=== PATIENT | male | born 1965 | race Two or more races ===

== ENCOUNTER 2018-11-11 19:24 | Emergency (ER) | payer MEDICAID ==
[~2018-11-11] VITALS: Ht 167.6 cm; Wt 72.6 kg
[2018-11-11] MEDS ORDERED: BENZTROPINE MESYLATE (1 MG) 1 MG TABLET PO ONE (20:00)
[2018-11-11] MEDS ORDERED: BENZTROPINE MESYLATE (1 MG) 1 MG TABLET ONE (20:02)
--- NOTE | 2018-11-11 20:18 | NUR ---
SPOKE WITH TIRSO SYLVESTER FROM [facility] AND INFORMED PT WILL RETURN TO FACILITY. PER TIRSO, THEY REQUIRE URINE DRUG SCREEN AND ETOH LEVEL PRIOR TO RETURE. ER AWARE
--- NOTE | 2018-11-11 20:51 | NUR ---
CALLED [facility] FOR TRANSPORTATION. ETA 90MIN. TRIP #[id number]
[2018-11-11 22:30] VITALS: BP 139/80
--- NOTE | 2018-11-11 22:37 | NUR ---
INFORMED TIRSO SYLVESTER FROM [facility] OF URINE DRUG SCREEN AND ETOH, PT WILL RETURN TO FACILITY
--- NOTE | 2018-11-11 23:03 | NUR ---
GAVE REPORT TO [facility] FOR TRANSPORTATION [facility]
== END 2018-11-11 23:03 ==
LOC: ER 19:28
DX: M62.838 Other muscle spasm (principal); I10 Essential (primary) hypertension; E11.9 Type 2 diabetes mellitus without complications; F17.200 Nicotine dependence, unspecified, uncomplicated
CPT/HCPCS: 36415; 80305; G0480

== ENCOUNTER 2018-12-26 20:28 | Emergency (ER) | payer MEDICAID ==
[~2018-12-26] VITALS: Ht 167.6 cm; Wt 72.6 kg
--- NOTE | 2018-12-26 20:45 | NUR ---
PT BIBSELF C/O SI WITH PLAN TO RUN INTO TRAFFIC. DENIES HI OR HALLUCINATIONS. PT AAOX4. CALM AND COOPERATIVE. RESPIRATIONS EVEN AND UNLABORED. SKIN INTACT. ABLE TO AMBULATE WITH STEADY GAIT. SUICIDIAL PRECAUTIONS INITIATED, PT PLACED IN GOWN AND BELONGING COLLECTED. SITTER AT BEDSIDE. WILL CONTINUE TO MONITOR.
--- NOTE | 2018-12-26 20:55 | NUR ---
URINE COLLECTED AND SENT TO LAB
--- NOTE | 2018-12-26 21:09 | NUR ---
CORE PLACER AT BEDSIDE FOR BLOOD DRAW
[2018-12-26 21:15] LABS: BASOPHILS # (AUTO) 0.1 /CMM (0.0-0.2); BASOPHILS % (AUTO) 1.1 % (0.0-2.0); HEMATOCRIT 40 % (39-51); HEMOGLOBIN 13.6 g/dL (13.5-17.5); LYMPHOCYTES # (AUTO) 2.5 /CMM (0.8-4.8); LYMPHOCYTES % (AUTO) 43.2 % (20.0-44.0); MEAN CORPUSCULAR HGB CONC 34 g/dl (31.0-36.0); MEAN CORPUSCULAR VOLUME 90 fL (80-96); MONOCYTES # (AUTO) 0.4 /CMM (0.1-1.30); MONOCYTES % (AUTO) 7.2 % (2.0-12.0); NEUTROPHILS # (AUTO) 2.1 /CMM (1.8-8.9); NEUTROPHILS % (AUTO) 37.5 % (43.0-81.0); PLATELET COUNT (AUTO) 229 /CMM (150-450); RED BLOOD CELL COUNT(AUTO) 4.45 MIL/uL (4.5-6.0); WHITE BLOOD COUNT (AUTO) 5.7 K/uL (4.3-11.0)
[2018-12-26 21:21] LABS: APPEARANCE,URINE Clear (CLEAR); BILIRUBIN,URINE Negative (NEGATIVE); BLOOD, URINE Negative Ery/uL (NEGATIVE); COLOR,URINE Yellow (YELLOW); KETONES,URINE Negative (NEGATIVE); LEUKOCYTE ESTERASE ,URINE Trace (NEGATIVE); NITRITE, URINE Negative (NEGATIVE); PH,URINE 6.5 (5.0-8.0); PROTEIN,URINE Negative (NEGATIVE); UGLUCOSE 500 MG/DL mg/dL (NEGATIVE); UROBILINOGEN,URINE 0.2 EU/dL (0.2)
[2018-12-26 21:25] LABS: CALCIUM, SERUM 9.4 mg/dL (8.5-10.1); CARBON DIOXIDE 32 mmol/L (21-32); CHLORIDE 101 mmol/L (98-107); GLUCOSE 255 mg/dL (74-106); POTASSIUM 4.5 mmol/L (3.5-5.1); SODIUM SERUM 139 mmol/L (136-145); UREA NITROGEN, BLOOD 21 mg/dL (7-18)
[2018-12-26 21:28] LABS: BACTERIA,URINE 2+ /HPF (None Seen); RBC,URINE 0-2 /HPF (0-2); SQUAMOUS EPITHELIAL CELL,UR Few /HPF (None Seen); YEAST,URINE Moderate /HPF (None Seen)
[2018-12-26] MEDS ORDERED: IV NS 0.9% 1,000 ML BAG IV ONE (21:30)
[2018-12-26 21:31] LABS: ALANINE AMINOTRANSFERASE 19 U/L (12-78); ALCOHOL, BLOOD < 3 mg/dL (0-0); ALKALINE PHOSPHATASE 93 U/L (46-116); ASPARTATE AMINOTRANSFERASE 7 U/L (15-37); BILIRUBIN,DIRECT 0.1 mg/dL (0.0-0.2); BILIRUBIN,TOTAL 0.3 mg/dL (0.2-1.0); SALICYLATE 2.9 mg/dL (2.8-20.0); TOTAL PROTEIN, SERUM 7.8 g/dL (6.4-8.2)
[2018-12-26 21:32] LABS: ACETAMINOPHEN 0 ug/ml (10-30)
--- NOTE | 2018-12-26 21:34 | NUR ---
SPOKE WITH JAN FROM [facility], NO BEDS AVAILABLE AT [facility] [place] AT THIS TIME Addendum: 12/26/18 at 2144 by DARIN PER JAN, REQUESTED FOR CLINICALS TO BE FAXED IN THE MORNING
[2018-12-26] MEDS ORDERED: FLUCONAZOLE (100 MG) 100 MG TABLET ONE (21:48)
[2018-12-26] MEDS ORDERED: CEPHALEXIN MONOHYDRATE 500 MG CAPSULE PO ONE ×2 (21:48→22:00)
[2018-12-26] MEDS ORDERED: FLUCONAZOLE (100 MG) 100 MG TABLET PO ONE (22:00)
--- NOTE | 2018-12-27 00:24 | NUR ---
PT RESTING COMFORTABLY IN BED. VITAL SIGNS STABLE. NO ACUTE DISTRESS NOTED AT THIS TIME. WILL CONTINUE TO MONITOR
--- NOTE | 2018-12-27 02:24 | NUR ---
PT RESTING COMFORTABLY IN BED. VITAL SIGNS STABLE. NO ACUTE DISTRESS NOTED AT THIS TIME. SITTER STILL AT BEDSIDE. WILL CONTINUE TO MONITOR.
--- NOTE | 2018-12-27 02:57 | NUR ---
PT ASLEEP, NO ACUTE DISTRESS NOTED, RESP EVEN AND UNLABORED. NO PAIN OR DISCOMFORT NOTED. CALL LIGHT WITHIN REACH WILL CONTINUE TO MONITOR PT.
--- NOTE | 2018-12-27 07:00 | NUR ---
1:1 SITTER AT BEDSIDE
--- NOTE | 2018-12-27 07:13 | NUR ---
shahnaz zuniga will be on his way.
--- NOTE | 2018-12-27 07:49 | NUR ---
ASSUMED CARE NOTED PATIENT ASLLEP BUT AROUSABLE CALM ,FOLLOWS COMMAND @ THIS TIME SITTER @ BEDSIDE ,VITALS ,CHECK ROOM FOR SAFETY
--- NOTE | 2018-12-27 08:35 | NUR ---
NAPOLEON GARCIA AT BEDSIDE FOR EVAL
--- NOTE | 2018-12-27 08:36 | NUR ---
PATIEN AWAKE ALERT SITTING @ SIDE OF BED FOLLOW COMMAND BREAKFAST SAFE TRAY GIVEN ,NAPOLEON @ BEDSIDE
--- NOTE | 2018-12-27 08:47 | NUR ---
PATIENTAWAKE ALERT DENIES SI AND HALUICNATION @ THIS TIME NOTED CALM AND VOCAL STATED HE NEEDS HELP NAPOLEON @ BEDSIDE
[2018-12-27] MEDS ORDERED: FLUO20CA36 PO (09:53)
[2018-12-27] MEDS ORDERED: UNK HTN PO (09:53)
[2018-12-27] MEDS ORDERED: GABA800T11 PO (09:53)
[2018-12-27] MEDS ORDERED: INSU100V7 SQ (09:53)
[2018-12-27] MEDS ORDERED: QUET50TA PO (09:53)
[2018-12-27] MEDS ORDERED: QUET200T PO (09:53)
[2018-12-27] MEDS ORDERED: GABAPENTIN 100 MG CAPSULE ONE (10:25)
[2018-12-27] MEDS ORDERED: GABAPENTIN 300 MG CAPSULE ONE (10:25)
[2018-12-27] MEDS ORDERED: GABAPENTIN 400 MG CAPSULE PO ONE (10:30)
[2018-12-27] MEDS ORDERED: QUETIAPINE FUMARATE 100 MG TABLET PO ONE (10:30)
[2018-12-27] MEDS ORDERED: QUETIAPINE FUMARATE 25 MG TABLET PO SCH (10:30)
[2018-12-27] MEDS ORDERED: QUETIAPINE FUMARATE 100 MG TABLET PO SCH (10:30)
[2018-12-27] MEDS ORDERED: QUETIAPINE FUMARATE 25 MG TABLET PO ONE (10:30)
[2018-12-27] MEDS ORDERED: GABAPENTIN 100 MG CAPSULE PO ONE (10:30)
--- NOTE | 2018-12-27 12:17 | NUR ---
PATIENT AWAKE ALERT ON THE PHONE NON COMPLAIN RECHECK BS 370 MD'S AWARE WITH ORDERS PATIENT DIABETIC DIET
[2018-12-27] MEDS ORDERED: INSULIN GLARGINE, 100 UNIT/ML CARTRIDGE SQ SCH (12:30)
--- NOTE | 2018-12-27 12:50 | NUR ---
Noted pharmacist talking to the provider regarding insulin order for verify
--- NOTE | 2018-12-27 12:56 | NUR ---
CALLED PHARMACY FOR REGARDING INSULIN
[2018-12-27] MEDS ORDERED: *INSULIN REGULAR(HUMULIN R)HUM 100 UNIT/ML VIAL SQ PRN (13:00)
[2018-12-27] MEDS ORDERED: DEXTROSE 50%-WATER 50 ML DISP.SYRIN IV PRN (13:00)
[2018-12-27] MEDS ORDERED: INSULIN REGULAR, HUMAN 100 UNIT/ML 3 ML VIAL SQ PRN (13:00)
[2018-12-27] MEDS: BLOOD SUGAR DIAGNOSTIC 1 EACH STRIP VI SCH ×2 (13:13→18:00)
[2018-12-27] MEDS: INSULIN GLARGINE, 100 UNIT/ML CARTRIDGE SQ SCH ×2 (14:25→18:00)
--- NOTE | 2018-12-27 15:12 | NUR ---
Patient asleep but arousable non distress ,patient is calm ,no agitation ,no hallucination continue to monitor
--- NOTE | 2018-12-27 15:28 | NUR ---
Spoke to Akila Gould from [facility] unit stated to faxed urine tox result and she will call back for room #.Faxed urine tox done
--- NOTE | 2018-12-27 16:52 | NUR ---
Patient accepted to [facility] report given to Gloria Camarena RN given back my Ed # for question ,called aziza from in take EMS Fisrt Med 60-75 minutes .patient is voluntary admission
--- NOTE | 2018-12-27 16:53 | NUR ---
[facility] ETA [id number]
--- NOTE | 2018-12-27 18:00 | NUR ---
PATIENT AWAKE ALERT DINNER PROVIDED mD AWARE BS 60
--- NOTE | 2018-12-27 18:01 | NUR ---
Bs 60 patient awake alert vitals done MD aware snacks given
--- NOTE | 2018-12-27 19:11 | NUR ---
Patient re check sugar 295 MD aware no order recieved .Patient stated would like to Dc home notify
--- NOTE | 2018-12-27 19:19 | NUR ---
Transfer report to Tomasz Miller
--- NOTE | 2018-12-27 19:21 | NUR ---
DR. Landa @ bedside talking to patient regarding transfer
--- NOTE | 2018-12-27 20:08 | NUR ---
PT DOES NOT WANT TO GO TO [facility] ANYMORE. PT VERBALIZED THAT HE IS NOT FEELING SUICIDAL. HE JUST WANTED TO GO TO HIS FRIEND INSTEAD. PT IS VOLUNTARY. MD MADE AWARE AND SPOKE WITH PT. APPROVED OF PT DISCHARGE. PT SIGNED [facility] WAIVER. REFUSED RESOURCES AND WILL TAKE CARE OF HIS OWN TRANSPORT ARRANGEMENT.
--- NOTE | 2018-12-27 20:11 | NUR ---
Patient discharged to home in stable condition. Written and verbal after care instructions given. Patient verbalizes understanding of instruction. Pt ambulatory with a steady gait
[2018-12-27 20:12] VITALS: BP 132/78
== END 2018-12-27 20:19 | disposition home or self-care (01) ==
LOC: ER 20:31
DX: R45.851 Suicidal ideations (principal); E11.65 Type 2 diabetes mellitus with hyperglycemia; F29 Unspecified psychosis not due to a substance or known physiological condition; I10 Essential (primary) hypertension; F32.9 Major depressive disorder, single episode, unspecified; F41.9 Anxiety disorder, unspecified; F43.10 Post-traumatic stress disorder, unspecified; F17.200 Nicotine dependence, unspecified, uncomplicated; Z88.0 Allergy status to penicillin; Z79.4 Long term (current) use of insulin; Z79.899 Other long term (current) drug therapy
CPT/HCPCS: 36415; 80048; 80076; 80305; 80307; 80329; 81001; 82962 ×8; 85025; 87086; 96360; 96372; 99284; G0480; J1815 ×3; J7030; 81000-TC